=== PATIENT | female | born 1990 | race Hispanic/Latino ===

== ENCOUNTER 2019-06-21 08:37 | Day surgery (SDC) | payer MEDICAID ==
[~2019-06-21] VITALS: Ht 142.2 cm; Wt 44.5 kg
[~2019-06-21 08:37] MED LIST: SODIUM CHLORIDE 0.9% 1000ML 1,000 ML IV ONE
[2019-06-21 10:09] VITALS: BP 129/76
[2019-06-21] MEDS ORDERED: PROPOFOL 10 MG/ML 20ML VIAL IV ONE ×2 (10:27)
[2019-06-21 10:45] VITALS: BP 93/32
== END 2019-06-21 11:15 | disposition home or self-care (01) ==
LOC: DAH 08:37 → ENDO 08:37 → EDSTATUS 17:42
PROVIDERS: ATTEND Internal Medicine
DX: K62.5 Hemorrhage of anus and rectum (principal); K52.9 Noninfective gastroenteritis and colitis, unspecified; K64.0 First degree hemorrhoids; F17.200 Nicotine dependence, unspecified, uncomplicated; Z80.0 Family history of malignant neoplasm of digestive organs
CPT/HCPCS: 36415; 45380; 84703; A4215; A4221; A4222; A4223; A4606; A4615; A4663; J2704 ×2; J7030

== ENCOUNTER 2020-11-17 09:50 | Emergency (ER) | payer MEDICAID ==
[2020-11-17 10:17] LABS: BASOPHILS % (AUTO) 0.3 % (0.0-5.0); EOSINOPHILS % (AUTO) 0.8 % (0.0-8.0); HEMATOCRIT 40.8 % (36-48); LYMPHOCYTES % (AUTO) 26.8 % (21.0-51.0); MEAN CORPUSCULAR HGB CONC 35.3 g/dL (32.0-36.0); MEAN CORPUSCULAR VOLUME 96.2 fL (79-99); MONOCYTES % (AUTO) 8.5 % (3.0-13.0); NEUTROPHILS % (AUTO) 63.4 % (40.0-77.0); PLATELET COUNT (AUTO) 268 K/uL (130-400); RED BLOOD CELL COUNT(AUTO) 4.24 MIL/uL (4.00-5.50); RED CELL DISTRIBUTION WIDTH 11.5 % (11.0-15.5); WHITE BLOOD COUNT (AUTO) 5.9 K/uL (4.8-10.8)
[2020-11-17 10:18] LABS: APPEARANCE,URINE Cloudy (CLEAR); BILIRUBIN,URINE Negative (NEGATIVE); COLOR,URINE Yellow (YELLOW); GLUCOSE, URINE (UA) Negative (NEGATIVE); KETONES,URINE Negative (NEGATIVE); LEUKOCYTE ESTERASE ,URINE Small (NEGATIVE); NITRATE,URINE Negative (NEGATIVE); OCCULT BLOOD,URINE Large (NEGATIVE); PH,URINE 7.5 (5.0-8.0); PROTEIN,URINE Trace mg/dL (NEGATIVE)
[2020-11-17 10:21] LABS: HCG,QUAL RESULT NEGATIVE (NEGATIVE)
[2020-11-17 10:21] LABS: CREATININE 0.7 mg/dL (0.5-1.5); POTASSIUM 4.2 mmol/L (3.5-5.1)
[2020-11-17 10:26] LABS: ALBUMIN 4.1 g/dL (3.5-5.0); BILIRUBIN,TOTAL 0.5 mg/dL (0.2-1.0); TOTAL PROTEIN, SERUM 7.8 g/dL (6.0-8.3)
[2020-11-17] MEDS ORDERED: ONDANSETRON HCL 4 MG/2 ML VIAL ONE (10:41)
[2020-11-17] MEDS ORDERED: HYDROMORPHONE 1 MG/1 ML AMP ONE ×2 (10:42→13:40)
[2020-11-17 10:58] LABS: BACTERIA,URINE Moderate /HPF (None Seen)
[2020-11-17 10:59] LABS: RBC,URINE 26-50 /HPF (0-1)
== END 2020-11-17 13:57 | disposition home or self-care (01) ==
LOC: EDH 09:50
DX: N20.1 Calculus of ureter (principal); Z72.0 Tobacco use
CPT/HCPCS: 36415; 74176; 80053; 81001; 81025; 85025; 87088; 96374; 96375; 96376; 99284; J1170 ×2; J2405